=== PATIENT | male | born 1975 | race Two or more races ===

== ENCOUNTER 2017-04-06 17:37 | Emergency (ER) | payer SELFPAY ==
[~2017-04-06] VITALS: Ht 182.9 cm; Wt 72.6 kg
[2017-04-06] MEDS ORDERED: LORAZEPAM 1 MG TABLET PO ONE (18:00)
[2017-04-06] MEDS ORDERED: LORAZEPAM 1 MG TABLET ONE (18:01)
[2017-04-06 19:09] VITALS: BP 142/82
== END 2017-04-06 19:34 | disposition home or self-care (01) ==
LOC: ER 17:38
DX: F41.9 Anxiety disorder, unspecified (principal); F10.129 Alcohol abuse with intoxication, unspecified
CPT/HCPCS: 99284; A4606; Z7610